=== PATIENT | male | born 1980 | race Caucasian/White ===

== ENCOUNTER 2024-03-08 10:16 | Emergency (ER) | payer MEDICAID, SELFPAY ==
[2024-03-08 10:17] VITALS: BP 139/93; PULSE 95; RESP 18; TEMP 36.4; O2SAT 99; BMI 24.4
--- NOTE | 2024-03-08 10:40 | EDS_ITS ---
HPI HPI - URI History of Present Illness Chief Complaint: Sore Throat Informant: patient Narrative Narrative: Patient is 44-year-old male presenting with worsening sore throat. Patient started having symptoms a couple days ago. He had sore throat and white spots on the left side of his throat. He went to an ER and (Jumana Williamson) and he states the doctor did not even really look at his throat. He had a throat swab which she was told was negative and he was put on azithromycin. He states he was not tested for COVID. He notes that he is continue to have a sore throat despite being on the azithromycin and now he thinks there is white spots on the right side of his throat. He is has a painful lymph node on the right side. He is taken Tylenol with mild help of symptoms. Denies any difficulty swelling but states it is painful. Denies associated nasal congestion, nausea, vomiting, diarrhea or cough. Does have funny feeling in his left ear. Is concerned he has strep throat. No other complaints or concerns at this time. ROS ROS ED Constitutional Constitutional ED: Denies chills or fever(s) Eyes Eyes: Denies change in vision ENT ENT ED: Reports ear pain left and sore throat; Denies rhinorrhea Cardiovascular Cardiovascular: Denies chest pain or palpitations Respiratory/Chest Respiratory/Chest: Denies cough or dyspnea Gastrointestinal Gastrointestinal: Denies diarrhea, nausea or vomiting Musculoskeletal Musculoskeletal: Denies arthralgias or myalgias Integumentary Denies rash Neurologic Neurologic: Denies headache(s) PFSH PFSH Medical History no medical history Home Medications ?Medication ?Instructions ?Recorded ?Last Taken ?Type amoxicillin 500 mg capsule 500 mg PO BID #20 caps 03/08/24 Unknown Rx ibuprofen 600 mg tablet 600 mg PO Q6H PRN PRN fever or 03/08/24 Unknown Rx pain #20 TABLETS Allergy/AdvReac Type Severity Reaction Status Date / Time No Known Allergies Allergy Verified 03/08/24 10:17 Social History Smoking Status: Current every day smoker tobacco type: cigarettes EXAM Physical Exam Const Vital Signs: 03/08/24 10:17 Temperature 97.6 F L Temperature Source Temporal Pulse Rate 95 Respiratory Rate 18 Blood Pressure 139/93 H Blood Pressure Mean 108 Pulse Ox 99 Oxygen Delivery Method Room Air Positive well nourished and well developed General Appearance ED: well developed and NAD HEENT Reports moist mucous membranes HEENT Narrative: Uvula is midline. Normal tympanic membranes bilaterally. Normal nares. normocephalic Throat: tonsils abnormal bilateral erythema and exudates (right) and posterior oropharynx abnormal Positive for erythema Eyes PERRL Neck supple and no meningeal signs General: lymphadenopathy anterior cervical (right, superior ) Resp normal respiratory effort and clear to auscultation bilaterally Cardio no murmurs Rate: regular rate Rhythm: regular rhythm Extremity normal to inspection and full ROM Neuro oriented x3 Sensorium / Orientation: alert Motor Exam: Negative for general weakness Psych mental status grossly normal Skin Rashes: no rashes MDM MDM MDM Narrative Medical decision making narrative: Patient valuated for worsening sore throat. Appears nontoxic. Vital signs are normal. He does have erythema, injection and exudate of the oropharynx/tonsils (right worse than left). Differential includes viral pharyngitis, Streptococcus pharyngitis, COVID-19 infection. Physical exam not consistent with peritonsillar abscess or deep space infection. Will obtain COVID swab, strep swab, give a dose of Decadron and Motrin for symptom control and reevaluate. Patient is afebrile. Does not have significant lymphadenopathy. Symptoms been going on for less than 5 days so low use of mono spot at this time. Patient reevaluated. No progressive change. Strep PCR and COVID, flu, RSV swab are negative. Will send throat culture and start the patient on amoxicillin which has better coverage for other bacteria that could be causing symptoms. Patient is given first dose of Amoxil in the ER and instructed to stop azithromycin. Will treat for bacterial pharyngitis likely is another species besides strep. Patient counseled possible this is viral and if that is the case it will be self-limiting. Instructed alternate ibuprofen and Tylenol as needed for pain control. Given return precautions. Discharged home in stable condition. Lab Data Attestation: I reviewed the patient's lab results. Discharge Plan Triage Chief Complaint: Sore Throat ED Provider: Sonya Peoples Dx/Rx/DC Orders Clinical Impression: Exudative pharyngitis Instructions: ED Pharyngitis, Report Pending Prescriptions: New amoxicillin 500 mg capsule 500 mg PO BID Qty: 20 0RF ibuprofen 600 mg tablet 600 mg PO Q6H PRN PRN (Reason: fever or pain) Qty: 20 0RF Primary Care Provider: Care Physician,No Primary Referrals: Mookie Barahona MD [Med Staff - Active Staff] - Care Physician,No Primary [Primary Care Provider] - Activity Restrictions/Additional Instructions: Your viral panel (COVID, flu and RSV swab) was negative as well as your strep PCR swab. We did send off for throat culture in case this is a different bacteria causing her symptoms. If this is another virus of the course will be self-limited however in case this is a separate bacteria we will switch her antibiotics from azithromycin (stop taking this) and start the amoxicillin. If you do not improve or worsens please follow-up with ENT. Been given outpatient follow-up information for this. Alternate Tylenol with ibuprofen prescribed today. Drink plenty of fluids. Return if you have difficulty breathing, swallowing or other progression/worsening your symptoms. Print Language: Macedonian Disposition Disposition: Home, Self Care
[2024-03-08] MEDS: Ibuprofen 600 MG Tablet PO (11:09)
[2024-03-08] MEDS: dexAMETHasone 10 MG/ML Vial PO.IVFORM (11:09)
[2024-03-08] MEDS: AMOXICILLIN 500 MG CAPSULE PO (13:04)
[2024-03-08 13:06] VITALS: BP 130/79; PULSE 87; RESP 18; TEMP 36.8; O2SAT 96
== END 2024-03-08 13:07 | disposition home or self-care (01) ==
PROVIDERS: Emergency Provider Emergency Medicine; Visit Provider Emergency Medicine
DX: J02.9 Acute pharyngitis, unspecified (principal); F17.210 Nicotine dependence, cigarettes, uncomplicated
CPT/HCPCS: 87070; 87631; 87651; 96374; 99283